=== PATIENT | male | born 1970 | race Caucasian/White ===

== ENCOUNTER 2020-04-07 21:02 | Emergency (ER) | payer SELFPAY ==
[~2020-04-07] VITALS: Ht 167.6 cm; Wt 81.6 kg
[2020-04-07 21:14] VITALS: BP 152/96
--- NOTE | 2020-04-07 21:17 | NUR ---
TO LOBBY A/W BED AMBULATORY
--- NOTE | 2020-04-07 21:38 | NUR ---
Dr. Fowler examining patient.
--- NOTE | 2020-04-07 21:51 | NUR ---
EKG PERFORMED IN PHLEBOTOMY CHAIR. EKG READS SINUS TACHYCARDIA @ 114
[2020-04-07 22:02] VITALS: BP 152/96
--- NOTE | 2020-04-07 22:03 | NUR ---
Patient discharged with v/s stable. Written and verbal after care instructions given and explained. Patient verbalized understanding. Ambulatory with steady gait. All questions addressed prior to discharge. Advised to follow up with PMD.
== END 2020-04-07 22:03 | disposition home or self-care (01) ==
LOC: EDBD 21:02 → MED 21:02
DX: F41.9 Anxiety disorder, unspecified (principal); R00.2 Palpitations; Z88.2 Allergy status to sulfonamides
CPT/HCPCS: 93005; 99283

== ENCOUNTER 2021-10-08 18:01 | Emergency (ER) | payer SELFPAY ==
[~2021-10-08] VITALS: Ht 185.4 cm; Wt 87.5 kg
[2021-10-08 18:22] VITALS: BP 152/93
--- NOTE | 2021-10-08 19:12 | NUR ---
JERMAN LOPEZ EVALUATING PT
--- NOTE | 2021-10-08 19:49 | NUR ---
PT AMBULATED TO BED 11
[2021-10-08 19:50] LABS: BASOPHILS % (AUTO) 0.6 % (0.0-2.0); EOSINOPHILS # (AUTO) 0.3 K/uL (0-0.4); EOSINOPHILS % (AUTO) 3.9 % (0.0-4.0); HEMATOCRIT 46.8 % (36-52); HEMOGLOBIN 15.8 g/dL (12.0-18.0); LYMPHOCYTES # (AUTO) 2.6 K/uL (2.0-11.5); LYMPHOCYTES % (AUTO) 33.6 % (20.5-51.1); MEAN CORPUSCULAR HEMOGLOBIN 32 pg (27-31); MEAN CORPUSCULAR HGB CONC 34 g/dL (33-37); MEAN CORPUSCULAR VOLUME 94.1 fL (80-94); MONOCYTES # (AUTO) 0.6 K/uL (0.8-1.0); MONOCYTES % (AUTO) 8.2 % (1.7-9.3); NEUTROPHILS # (AUTO) 4.2 K/uL (1.8-7.7); NEUTROPHILS % (AUTO) 53.7 % (42.2-75.2); PLATELET COUNT (AUTO) 148 K/uL (140-450); RED BLOOD CELL COUNT(AUTO) 4.97 MIL/uL (4.20-6.10); RED CELL DISTRIBUTION WIDTH 14.5 % (11.6-13.7); WHITE BLOOD COUNT (AUTO) 7.9 K/uL (4.8-10.8)
[2021-10-08 19:57] LABS: CARBON DIOXIDE 25.7 mmol/L (21-32); CREATININE 0.9 mg/dL (0.6-1.3); POTASSIUM 3.7 mmol/L (3.5-5.1)
[2021-10-08 20:36] LABS: ALBUMIN 3.7 g/dL (3.4-5.0); TOTAL BILIRUBIN 0.5 mg/dL (0.0-1.0)
--- NOTE | 2021-10-08 21:00 | NUR ---
PT BIB SELF, STATES HE FELT DIZZY THIS MORNING AND FELT HE WAS GOING TO FALL. DENIES ANY SOB, CHEST PAIN, N/V. STATES HE HAS BEEN DIAGNOSED IN [place] IN THE PAST WITH CARDIAC PROBLEMS AND TAKES METOPROLOL, BUT HAS NOT TAKEN IT THE LAST 2 WEEKS. DENIES SMOKING, ALCOHOL INTAKE, AND ILLEGAL DRUG USE. PMH: DEPRESSION, ANXIETY ALLERGIES: NONE
[2021-10-08 21:30] VITALS: BP 152/93
== END 2021-10-08 21:30 | disposition home or self-care (01) ==
LOC: MED 18:01
DX: I10 Essential (primary) hypertension (principal); R42 Dizziness and giddiness; R00.2 Palpitations
CPT/HCPCS: 36415; 80053; 84484; 85025; 93005; 99284